=== PATIENT | male | born 1975 | race Caucasian/White ===

== ENCOUNTER 2019-03-24 05:28 | Emergency (ER) | payer MEDICAID, OTHER ==
[~2019-03-24] VITALS: Ht 180.3 cm; Wt 81.6 kg
[~2019-03-24 05:28] MED LIST: ALBU8.5H8 INH; D-ME473S2 PO; PRED20TA PO
[2019-03-24 05:33] VITALS: Ht 180.3 cm; Wt 81.6 kg
[2019-03-24] MEDS ORDERED: IPRATROPIUM (NEB) 0.5 MG/2.5 ML AMP NEB STA (05:44)
[2019-03-24] MEDS ORDERED: METHYLPREDNISOLONE 125 MG INJ IV STA (05:44)
[2019-03-24] MEDS ORDERED: ALBUTEROL 0.083% (NEB) 2.5 MG/3 ML AMP NEB STA (05:44)
[2019-03-24] MEDS ORDERED: ALBUTEROL 0.083% (NEB) 2.5 MG/3 ML AMP HHN STA (06:02)
[2019-03-24] MEDS ORDERED: IPRATROPIUM (NEB) 0.5 MG/2.5 ML AMP HHN ONE (06:30)
[2019-03-24] MEDS ORDERED: METHYLPRED. NA SUCC 250 MG in DEXTROSE 5% 50 ML IV ONE (06:30)
[2019-03-24 07:23] VITALS: BP 135/73; PULSE 84; RESP 19
== END 2019-03-24 07:40 | disposition home or self-care (01) ==
LOC: FTE 05:28
DX: J45.901 Unspecified asthma with (acute) exacerbation (principal)
CPT/HCPCS: 71045; 94644; 96365; J2930; Z7502; Z7610